=== PATIENT | male | born 1995 | race Caucasian/White ===

== ENCOUNTER 2020-07-30 13:58 | Emergency (ER) | payer MEDICAID ==
[~2020-07-30] VITALS: Ht 177.8 cm; Wt 95.0 kg
[2020-07-30 14:22] VITALS: BP 130/78
== END 2020-07-30 14:34 | disposition home or self-care (01) ==
LOC: ER 13:58
DX: J06.9 Acute upper respiratory infection, unspecified (principal); Z20.828 Contact with and (suspected) exposure to other viral communicable diseases
CPT/HCPCS: 36415; 87635; 99283

== ENCOUNTER 2024-05-26 18:06 | Emergency (ER) | payer MEDICAID ==
[~2024-05-26] VITALS: Ht 177.8 cm; Wt 87.4 kg
[2024-05-26 18:12] VITALS: TEMP 98.3
[2024-05-26 19:36] VITALS: BP 126/76; PULSE 86; RESP 18; O2SAT 98
== END 2024-05-26 19:44 | disposition home or self-care (01) ==
LOC: ER 18:07
DX: S20.211A Contusion of right front wall of thorax, initial encounter (principal); X58.XXXA Exposure to other specified factors, initial encounter; Y93.89 Activity, other specified; Y92.89 Other specified places as the place of occurrence of the external cause; Y99.8 Other external cause status
CPT/HCPCS: 71101; 99283

== ENCOUNTER 2024-06-28 12:36 | Emergency (ER) | payer MEDICAID ==
[~2024-06-28] VITALS: Ht 177.8 cm; Wt 95.7 kg
[2024-06-28 13:09] VITALS: BP 114/80; PULSE 90; TEMP 98.1; O2SAT 98
[2024-06-28] MEDS: LIDOcaine 1% W/epiNEPHrine 1:100,000 20ml vial IJ ONE (13:55)
[2024-06-28] MEDS ORDERED: SULF1TAB49 PO (14:20)
[2024-06-28 14:26] VITALS: RESP 18
== END 2024-06-28 14:27 | disposition home or self-care (01) ==
LOC: ER 12:37
DX: L02.212 Cutaneous abscess of back [any part, except buttock and flank] (principal); Z79.899 Other long term (current) drug therapy
CPT/HCPCS: 10060; 99282; 99283